=== PATIENT | female | born 1990 | race Caucasian/White ===

== ENCOUNTER 2017-01-22 14:48 | Emergency (ER) | payer OTHER ==
[~2017-01-22 14:48] MED LIST: NORCO 5-325 TA1 EACH PO
[2017-01-22 16:08] LABS: HEMOGLOBIN 13.8 gm/dl (12.3-15.3); RED BLOOD COUNT 4.68 M/UL (4.00-5.10); WHITE BLOOD COUNT 6.6 K/UL (4.5-11.0)
[2017-01-22 16:20] LABS: BUN/CREATININE RATIO 16 (0-10)
== END 2017-01-22 17:40 | disposition home or self-care (01) ==
LOC: ER1 14:48
PROVIDERS: Emergency Medicine
DX: R10.9 Unspecified abdominal pain (principal); Z88.8 Allergy status to other drugs, medicaments and biological substances; Z88.5 Allergy status to narcotic agent
CPT/HCPCS: 36415; 74022; 80053; 81001; 83690; 84703; 85025; 87086; 99284

== ENCOUNTER 2021-01-19 03:32 | Emergency (ER) | payer OTHER ==
[~2021-01-19 03:32] MED LIST changes: +LODINE CAP 300300 MG PO; +PYRIDIUM100 MG PO
[2021-01-19 04:42] LABS: HEMOGLOBIN 13.5 gm/dl (12.3-15.3); RED BLOOD COUNT 4.63 M/UL (4.00-5.10); WHITE BLOOD COUNT 9.1 K/UL (4.5-11.0)
[2021-01-19 05:03] LABS: BUN/CREATININE RATIO 17 (0-10)
[2021-02-11] MEDS ORDERED: ROPINIROLE HC0.25 MG PO (07:28)
[2021-02-11] MEDS ORDERED: PROZAC40 MG PO (07:28)
[2021-02-11] MEDS ORDERED: MULTIVITAMIN1 EACH PO (07:28)
[2021-03-30] MEDS ORDERED: COLACE100 MG PO (13:34)
[2021-03-30] MEDS ORDERED: IBUPROFEN800 MG PO (13:34)
[2021-03-30] MEDS ORDERED: PERCOCET 5/325 T1 EA PO (13:34)
== END 2021-01-19 06:45 | disposition home or self-care (01) ==
LOC: ER1 03:32
PROVIDERS: Family Medicine
DX: R10.9 Unspecified abdominal pain (principal); R11.2 Nausea with vomiting, unspecified
CPT/HCPCS: 80053; 81001; 82150; 83690; 85025; 96374; 99284; J2405; Q9967

== ENCOUNTER → 2021-02-11 | Day surgery (SDC) | payer OTHER ==
[~2021-02-11] MED LIST changes: +COLACE100 MG PO; +IBUPROFEN800 MG PO; +MULTIVITAMIN1 EACH PO; +PERCOCET 5/325 T1 EA PO; +PROZAC40 MG PO; +ROPINIROLE HC0.25 MG PO
== END | disposition home or self-care (01) ==
LOC: OR 06:25
DX: K59.00 Constipation, unspecified (principal); R10.9 Unspecified abdominal pain; Z88.1 Allergy status to other antibiotic agents; Z88.5 Allergy status to narcotic agent; Z90.49 Acquired absence of other specified parts of digestive tract; Z20.822 Contact with and (suspected) exposure to COVID-19; Z86.69 Personal history of other diseases of the nervous system and sense organs
CPT/HCPCS: J2001; J2250; J2704; J7030

== ENCOUNTER → 2021-02-16 | Outpatient (CLI) | payer OTHER | LOC: KOH-I 02-07 16:30 → CT 09:30 | DX: R91.1 Solitary pulmonary nodule (principal); R91.8 Other nonspecific abnormal finding of lung field | CPT/HCPCS: 71250 ==

== ENCOUNTER → 2021-03-30 | Day surgery (SDC) | payer OTHER ==
[2021-03-30 09:25] LABS: HEMOGLOBIN 13.5 gm/dl (12.3-15.3); RED BLOOD COUNT 4.5 M/UL (4.00-5.10); WHITE BLOOD COUNT 7.8 K/UL (4.5-11.0)
== END | disposition home or self-care (01) ==
LOC: OR 08:20
PROVIDERS: Obstetrics & Gynecology
PROC: 0U5B8ZZ Destruction of Endometrium, Via Natural or Artificial Opening Endoscopic (ICD-10-PCS; principal; 2021-03-30 09:15)
PROC: 0UDB7ZZ Extraction of Endometrium, Via Natural or Artificial Opening (ICD-10-PCS; 2021-03-30 09:15)
DX: N93.9 Abnormal uterine and vaginal bleeding, unspecified (principal); N84.0 Polyp of corpus uteri; K76.0 Fatty (change of) liver, not elsewhere classified; G25.81 Restless legs syndrome; Z88.1 Allergy status to other antibiotic agents; Z88.5 Allergy status to narcotic agent; Z87.891 Personal history of nicotine dependence; Z79.899 Other long term (current) drug therapy; Z98.51 Tubal ligation status
CPT/HCPCS: 36415; 81001; 84702; 85025; 87086; J1100; J1885; J1956; J2001; J2250; J2270; J2405; J2704; J3010; J7030; J7120